=== PATIENT | male | born 1960 | race American Indian/Alaskan Native ===

== ENCOUNTER 2017-08-03 10:30 | Outpatient (CLI) | payer MEDICAID, OTHER ==
--- NOTE | 2017-08-03 11:09 | XRay Report ---
ROUTINE CHEST, TWO VIEWS: HISTORY: Right chest pain. The trachea, heart, mediastinal contour, lung hyman and bony thorax are unremarkable. A dual-lumen right IJ venous catheter terminates in the superior right atrium. IMPRESSION: Unremarkable chest x-ray.
== END 2017-08-03 10:31 | disposition home or self-care (01) ==
LOC: XRAY 10:30
PROVIDERS: ATTEND Nurse Practitioner Acute Care
DX: N18.6 End stage renal disease (principal); R07.9 Chest pain, unspecified
CPT/HCPCS: 71046

== ENCOUNTER 2018-04-25 10:03 | Emergency (ER) | payer MEDICARE ==
--- NOTE | 2018-04-25 10:57 | Emergency Department Report ---
HPI - General Chief Complaint: Fall Time Seen by Provider: 04/25/18 10:42 - HPI HPI: Room 3 The patient is a 57 y/o M p/w a CC of fall with head injury. The patient states he was leaning over to pick something up when he got dizzy and lost his balance causing him to fall forward striking his head. Pt denies LOC. Pt denies complaints ED Past Medical Hx - Past Medical History Hx Diabetes: Yes Hx Renal Disease: Yes Hx of Cancer: Yes (Prostate) - Family History Family history: no significant - Social History Smoking Status: Current Every Day Smoker (04/24 ppd) Substance Use Type: None - Medications Home Medications: Home Medications Medication Instructions Recorded Confirmed Last Taken Type Atorvastatin [Lipitor Tab] 80 mg PO DAILY 04/25/18 04/25/18 Unknown History Calcium Acetate [Phoslo] 1,334 mg PO TID 04/25/18 04/25/18 Unknown History Folic Acid/Vit B Comp W-C [Renal 1 cap PO QDAY 04/25/18 04/25/18 Unknown History Caps] Metoprolol [Lopressor] 12.5 mg PO BID 04/25/18 04/25/18 Unknown History amLODIPine [Norvasc] 10 mg PO DAILY 04/25/18 04/25/18 Unknown History ED Review of Systems ROS: Stated complaint: DIZZINESS Other details as noted in HPI Constitutional: no symptoms reported Eyes: denies: eye pain ENT: denies: throat pain Respiratory: no symptoms reported Cardiovascular: denies: chest pain Endocrine: no symptoms reported Gastrointestinal: denies: abdominal pain Genitourinary: denies: testicular pain Musculoskeletal: denies: back pain Neurological: denies: headache Physical Exam - Physical Exam Vital Signs: Vital Signs 04/25/18 10:19 Temperature 98.7 F Pulse Rate 70 Respiratory 18 Rate Blood Pressure 125/56 O2 Sat by Pulse 100 Oximetry Physical Exam: GEN: WD male lying on stretcher not appearing to be in acute distress. Dressing to left side of face HEENT: approx 1cm lac just lateral to left eyebrow Neck: Trachea midline CV: rrr Lungs: BS equal bilat Abd: S/NT/ND Skin: no diaphoresis Neuro: GCS 15, cranial nerves II through XII grossly intact, accounting software specialist equal bilaterally. Moves all extremities well ED Course Vital Signs 04/25/18 10:19 Temperature 98.7 F Pulse Rate 70 Respiratory 18 Rate Blood Pressure 125/56 O2 Sat by Pulse 100 Oximetry - Reevaluation(s) Reevaluation #1: 04/25/18 18:49 Patient now experiencing some inattention to the left side. Patient does not move left lower extremity and left estate manager is weaker than the right - Consultations Consultation #1: 04/25/18 18:47 [facility] transfer line called- case discussed with Dr. Nugent. Looking for placement will call back. Recommends holding on aspirin for now 04/25/18 19:35 Patient accepted in transfer to [facility] trauma - Laceration /Wound Repair Face Wound Location: face Wound Length (cm): 1 Wound's Depth, Shape: linear Wound Explored: clean Irrigated w/ Saline (ccs): 200 Betadine Prep?: Yes Anesthesia: Lidocaine w/ Epi Volume Anesthetic (ccs): 3 Suture Size/Type: 5:0, proline Number of Sutures: 2 Layer Closure?: No Sterile Dressing Applied?: Yes ED Medical Decision Making - Lab Data Result diagrams: 04/25/18 10:32 04/25/18 10:32 Laboratory Tests 04/25/18 04/25/18 04/25/18 10:32 10:32 10:32 WBC 13.7 H RBC 4.26 Hgb 11.9 Hct 37.1 MCV 87 MCH 28 MCHC 32 RDW 16.4 H Plt Count 72 L Lymph % (Auto) 4.[address] [place] % (Auto) 5.8 Eos % (Auto) 1.2 Baso % (Auto) 0.5 Lymph # 0.[address] [place] # 0.8 Eos # 0.2 Baso # 0.1 Seg Neutrophils % 87.9 H Seg Neutrophils # 12.0 H PT 14.5 INR 1.09 APTT 24.3 Sodium 130 L Potassium 4.8 Chloride 84.1 L Carbon Dioxide 17 L Anion Gap 34 BUN 77 H Creatinine 17.9 H Estimated GFR 3 BUN/Creatinine Ratio 4 Glucose 196 H Calcium 8.8 Total Bilirubin 0.30 AST 12 ALT 9 Alkaline Phosphatase 84 Total Protein 7.0 Albumin 3.0 L Albumin/Globulin Ratio 0.8 Plasma/Serum Alcohol 04/25/18 10:32 WBC RBC Hgb Hct MCV MCH MCHC RDW Plt Count Lymph % (Auto) [place] % (Auto) Eos % (Auto) Baso % (Auto) Lymph # [place] # Eos # Baso # Seg Neutrophils % Seg Neutrophils # PT INR APTT Sodium Potassium Chloride Carbon Dioxide Anion Gap BUN Creatinine Estimated GFR BUN/Creatinine Ratio Glucose Calcium Total Bilirubin AST ALT Alkaline Phosphatase Total Protein Albumin Albumin/Globulin Ratio Plasma/Serum Alcohol < 0.01 - EKG Data -: EKG Interpreted by Me EKG shows normal: sinus rhythm Rate: tachycardia (116 bpm) - EKG Data When compared to previous EKG there are: previous EKG unavailable Interpretation: nonspecific ST-T wave jarek (T-wave inversion in aVL) - Radiology Data Radiology results: report reviewed (CT Head, CT Cervical spine, MRI brain), image reviewed (CT Head, CT Cervical spine. MR brain) [facility] [address] [place] [address] Cat Scan Report Signed Patient: ALESSANDRO ZIEGLER MR#: [id number] : 1960 Acct:[id number] Age/Sex: 57 / M ADM Date: 04/25/18 Loc: ED Attending Dr: Ordering Physician: JUAN MAGANA MD Date of Service: 04/25/18 Procedure(s): CT head/brain wo con Accession Number(s): [id number] cc: JUAN MAGANA MD FINAL REPORT EXAM: CT HEAD/BRAIN WO CON HISTORY: Fall TECHNIQUE: CT of the head was performed without intravenous contrast. PRIORS: None. FINDINGS: Motion artifact somewhat degrades image quality. The ventricles are normal in shape and position. The ventricles are nondilated. There is a tiny focus of high attenuation in a right frontal sulcus. The basilar cisterns are patent. There is a patchy focus of low attenuation adjacent to the frontal horn of the left lateral ventricle. There is a broad area of low attenuation with loss of the harman- white differentiation in the right posterior parietal region. Minimal mucosal thickening of the right maxillary sinus is likely congestive or inflammatory. The extracranial soft tissues demonstrate no abnormality. The calvarium is intact. The orbits are intact. The mastoid air cells are clear. IMPRESSION: 1. Possible small subarachnoid hemorrhage in the right frontal region. 2. Broad area of low attenuation in the right posterior parietal region with loss of the harman-white differentiation may represent a recent infarct versus old infarct or underlying lesion. Recommend further evaluation with MRI of the brain. 3. Patchy low attenuation in the left frontal periventricular white matter likely represents an old infarct. Findings were discussed with Dr. Magana at 8:39 a.m. PST on 04/25/2017. Transcribed By: Dictated By: ROXANA HESS MD Electronically Authenticated By: ROXANA HESS MD Signed Date/Time: 04/25/18 1140 DD/ 1143 TD/TT: 04/25/[address] [address] Cat Scan Report Signed Patient: ALESSANDRO ZIEGLER MR#: [id number] : 1960 Acct:[id number] Age/Sex: 57 / M ADM Date: 04/25/18 Loc: ED Attending Dr: Ordering Physician: JUAN MAGANA MD Date of Service: 04/25/18 Procedure(s): CT cervical spine wo con Accession Number(s): [id number] cc: JUAN MAGANA MD FINAL REPORT EXAM: CT CERVICAL SPINE WO CON HISTORY: fall, head injury TECHNIQUE: CT of the cervical spine was performed without intravenous contrast. Reconstructions were included in the coronal and sagittal planes. PRIORS: None. FINDINGS: There is mild motion artifact which somewhat limits image quality. No cervical spine fracture or subluxation. The prevertebral soft tissues are normal. No spinal canal stenosis or neural foraminal narrowing. There is a nonspecific nodular opacity in the left lung apex measuring 9 millimeters. Left IJ central venous catheter is present. The distal tip was not definitively seen. IMPRESSION: 1. No acute cervical spine abnormality. 2. Left apical pulmonary nodule is incompletely imaged. Recommend further evaluation with chest CT when feasible. Transcribed By: Dictated By: ROXANA HESS MD Electronically Authenticated By: ROXANA HESS MD Signed Date/Time: 04/25/18 1201 DD/ 1204 TD/TT: 04/25/[address] [address] Magnetic Resonance Report Signed Patient: ALESSANDRO ZIEGLER MR#: [id number] : 1960 Acct:[id number] Age/Sex: 57 / M ADM Date: 04/25/18 Loc: ED Attending Dr: Ordering Physician: JUAN MAGANA MD Date of Service: 04/25/18 Procedure(s): MR brain wo con Accession Number(s): [id number] cc: JUAN MAGANA MD FINAL REPORT EXAM: MR BRAIN WO CON HISTORY: head injury after fall. poss [facility] on CTer inpatient TECHNIQUE: Multiplanar multisequence brain MR imaging without IV contrast. PRIORS: Head CT 04/25/2018 FINDINGS: There is a large region of restricted diffusion most compatible with acute or subacute ischemia and/or ischemic infarct involving the right parieto-occipital watershed region. This corresponds with suspected lesion on CT. Corresponding T1 and T2 signal abnormality suggests the lesion is at least 16 hours old. Additional small focus of restricted diffusion is present in the posterior corpus callosum with left-sided predominance. Additional tiny focus of restricted diffusion is noted in the posterior right periventricular white matter and the anterior superior right periventricular white matter. Patient motion artifact degrades image quality and limits the examination. Again noted, as postulated on CT, there is sliver like FLAIR hyperintensity a single superior right frontal sulcus possibly representing trace subarachnoid hemorrhage. The included air filled sinuses contain no acute fluid level. Foci of hyperintensity in the cerebral white matter, while nonspecific, are present and usually attributed to chronic ischemic gliosis. It can occur secondary to the normal aging process, hypertension, vasculitis, migraine related changes, or arterial sclerotic vascular disease. The differential includes any cause of gliosis as well as demyelination in the appropriate clinical setting. There is ventricular and sulcal prominence compatible with global symmetric cerebrocortical atrophy. The brain is without mass or mass effect. No midline shift. IMPRESSION: Large region of restricted diffusion in right parieto-occipital watershed region. Additional smaller foci of restricted diffusion in the posterior corpus callosum and right periventricular white matter. These findings are most compatible with acute to subacute ischemia and/or ischemic infarct, at least 16 hours old As suggested on CT, MRI finding also suspicious for trace subarachnoid hemorrhage in a single superior right frontal sulcus Transcribed By: VAMSHI Dictated By: LESLIE REYES MD Electronically Authenticated By: LESLIE REYES MD Signed Date/Time: 04/25/181835 DD/ 37 TD/TT: 04/25/181837 - Differential Diagnosis CHI, ICH Critical care attestation.: If time is entered above; I have spent that time in minutes in the direct care of this critically ill patient, excluding procedure time. ED Disposition Clinical Impression: CVA (cerebral vascular accident), Subarachnoid hemorrhage, Facial laceration Disposition: DC/TX-70 ANOTHER TYPE HLTHCARE Is pt being admited?: No Does the pt Need Aspirin: No Condition: Stable Referrals: PRIMARY CARE,MD [Primary Care Provider] - 3-5 Days Time of Disposition: 19:53 (awaiting transport)
[2018-04-25 11:02] LABS: Basophils # (Auto) 0.1 K/mm3 (0.0-0.1); Basophils % (Auto) 0.5 % (0.0-1.8); Eosinophils # (Auto) 0.2 K/mm3 (0.0-0.4); Eosinophils % (Auto) 1.2 % (0.0-4.3); Hematocrit 37.1 % (35.5-45.6); Hemoglobin 11.9 gm/dl (11.8-15.2); Lymphocytes # (Auto) 0.6 K/mm3 (1.2-5.4); Lymphocytes % (Auto) 4.6 % (13.4-35.0); Mean Corpuscular HGB Conc 32 % (32-34); Mean Corpuscular Volume 87 fl (84-94); Monocytes # (Auto) 0.8 K/mm3 (0.0-0.8); Monocytes % (Auto) 5.8 % (0.0-7.3); Red Blood Count 4.26 M/mm3 (3.65-5.03); Red Cell Distribution Width 16.4 % (13.2-15.2)
[2018-04-25 11:10] LABS: INR 1.09 (0.87-1.13)
[2018-04-25 11:11] LABS: Partial Thromboplastin Time 24.3 Sec. (24.2-36.6)
[2018-04-25 11:12] LABS: Calcium 8.8 mg/dL (8.4-10.2)
--- NOTE | 2018-04-25 11:40 | Cat Scan Report ---
FINAL REPORT EXAM: CT HEAD/BRAIN WO CON HISTORY: Fall TECHNIQUE: CT of the head was performed without intravenous contrast. PRIORS: None. FINDINGS: Motion artifact somewhat degrades image quality. The ventricles are normal in shape and position. The ventricles are nondilated. There is a tiny focus of high attenuation in a right frontal sulcus. The basilar cisterns are patent. There is a patchy focus of low attenuation adjacent to the frontal horn of the left lateral ventricle. There is a broad area of low attenuation with loss of the harman-white differentiation in the right posterior parietal region. Minimal mucosal thickening of the right maxillary sinus is likely congestive or inflammatory. The ext racranial soft tissues demonstrate no abnormality. The calvarium is intact. The orbits are intact. Th e mastoid air cells are clear. IMPRESSION: 1. Possible small subarachnoid hemorrhage in the right frontal region. 2. Broad area of low attenuation in the right posterior parietal region with loss of the harman-white d ifferentiation may represent a recent infarct versus old infarct or underlying lesion. Recommend furt her evaluation with MRI of the brain. 3. Patchy low attenuation in the left frontal periventricular white matter likely represents an old i nfarct. Findings were discussed with Dr. Patel at 8:39 a.m. PST on 04/25/2017.
--- NOTE | 2018-04-25 12:01 | Cat Scan Report ---
FINAL REPORT EXAM: CT CERVICAL SPINE WO CON HISTORY: fall, head injury TECHNIQUE: CT of the cervical spine was performed without intravenous contrast. Reconstructions were included in the coronal and sagittal planes. PRIORS: None. FINDINGS: There is mild motion artifact which somewhat limits image quality. No cervical spine fracture or subl uxation. The prevertebral soft tissues are normal. No spinal canal stenosis or neural foraminal narrowing. There is a nonspecific nodular opacity in the left lung apex measuring 9 millimeters. Left IJ central venous catheter is present. The distal tip was not definitively seen. IMPRESSION: 1. No acute cervical spine abnormality. 2. Left apical pulmonary nodule is incompletely imaged. Recommend further evaluation with chest CT wh en feasible.
[2018-04-25 12:18] LABS: Platelet Count 72 K/mm3 (140-440)
[2018-04-25] MEDS ORDERED: NACL 0.9% 500 ML IR ONE (17:20)
--- NOTE | 2018-04-25 18:36 | Magnetic Resonance Report ---
FINAL REPORT EXAM: MR BRAIN WO CON HISTORY: head injury after fall. poss [facility] on CTer inpatient TECHNIQUE: Multiplanar multisequence brain MR imaging without IV contrast. PRIORS: Head CT 04/25/2018 FINDINGS: There is a large region of restricted diffusion most compatible with acute or subacute ischemia and/o r ischemic infarct involving the right parieto-occipital watershed region. This corresponds with susp ected lesion on CT. Corresponding T1 and T2 signal abnormality suggests the lesion is at least 16 valarie rs old. Additional small focus of restricted diffusion is present in the posterior corpus callosum with left- sided predominance. Additional tiny focus of restricted diffusion is noted in the posterior right periventricular white m atter and the anterior superior right periventricular white matter. Patient motion artifact degrades image quality and limits the examination. Again noted, as postulated on CT, there is sliver like FLAIR hyperintensity a single superior right f rontal sulcus possibly representing trace subarachnoid hemorrhage. The included air filled sinuses contain no acute fluid level. Foci of hyperintensity in the cerebral white matter, while nonspecific, are present and usually attri buted to chronic ischemic gliosis. It can occur secondary to the normal aging process, hypertension, vasculitis, migraine related changes, or arterial sclerotic vascular disease. The differential includ es any cause of gliosis as well as demyelination in the appropriate clinical setting. There is ventricular and sulcal prominence compatible with global symmetric cerebrocortical atrophy. The brain is without mass or mass effect. No midline shift. IMPRESSION: Large region of restricted diffusion in right parieto-occipital watershed region. Additional smaller foci of restricted diffusion in the posterior corpus callosum and right periventricular white matter. These findings are most compatible with acute to subacute ischemia and/or ischemic infarct, at least 16 hours old As suggested on CT, MRI finding also suspicious for trace subarachnoid hemorrhage in a single superio r right frontal sulcus
[2018-04-25] MEDS ORDERED: NACL 0.9% IR ONE ×2 (18:55→18:56)
[2018-04-25] MEDS ORDERED: XYLOCAINE 1%/ EPI 1:100,000 INFILTRATI ONE ×2 (19:12→19:45)
[2018-04-25] MEDS ORDERED: HYDROGEN PEROXIDE ONE ×2 (19:13→19:14)
[2018-04-25] MEDS ORDERED: HYDROGEN PEROXIDE TP ONE (19:48)
[2018-04-25 20:28] VITALS: BP 109/52
== END 2018-04-25 20:28 | disposition other institution (70) ==
LOC: ED 10:03
DX: S01.81XA Laceration without foreign body of other part of head, initial encounter (principal); I63.9 Cerebral infarction, unspecified; I60.9 Nontraumatic subarachnoid hemorrhage, unspecified; E11.9 Type 2 diabetes mellitus without complications; F17.210 Nicotine dependence, cigarettes, uncomplicated; Z85.46 Personal history of malignant neoplasm of prostate; W17.89XA Other fall from one level to another, initial encounter; Y93.89 Activity, other specified; Y99.8 Other external cause status; Y92.89 Other specified places as the place of occurrence of the external cause
CPT/HCPCS: 12011; 36415; 70450; 70551; 72125; 80053; 85025; 85610; 85730; 93005; 93010; 99285; G0480; 80320